=== PATIENT | female | born 2000 | race Caucasian/White ===

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

== ENCOUNTER 2022-01-23 22:47 | Emergency (ER) | payer MEDICAID, SELFPAY ==
[2022-01-23 22:48] VITALS: BP 134/83; PULSE 85; RESP 18; TEMP 36.3; O2SAT 100; BMI 23.6
--- NOTE | 2022-01-23 23:44 | ED.GENADULT ---
HPI - General Adult General Chief complaint: Skin/Abscess/Foreign Body Stated complaint: Bumps on vaginal area Time Seen by Provider: 01/23/22 22:54 Source: patient Mode of arrival: ambulatory Limitations: no limitations History of Present Illness HPI narrative: 21-year-old female no significant medical history presenting to the emergency department with a rash in her private area x2 days. Patient tells me that her rash is very painful, worse with walking. She reports she noted small bumps that are red and tender in her private area. Patient reports that this is never happened to her before. She tells me she is sexually active with 1 partner, this is the only sexual partner she has ever had, she tells me she typically wears protection, she tells me she does not think she has an STD or is . Patient denies fevers, chills, back pain, nausea, vomiting, abdominal pain, headache, vision changes, chest pain, shortness of breath, vaginal bleeding, pain with intercourse, vaginal discharge. Patient reports she has not followed by an OBGYN and has never been seen by OBGYN. Related Data Previous Rx's Medication Instructions Recorded doxycycline hyclate 100 mg capsule 100 mg PO BID 14 days #28 caps 01/23/22 metronidazole 500 mg tablet 500 mg PO BID 14 days #28 tabs 01/23/22 nitrofurantoin 100 mg PO Q12H 5 days #10 caps 01/24/22 monohydrate/macrocrystals 100 mg capsule (Macrobid) valacyclovir 1 gram tablet 1,000 mg PO BID 10 days #20 tabs 01/24/22 (Valtrex) Allergies Allergy/AdvReac Type Severity Reaction Status Date / Time No Known Allergies Allergy Verified 08/17/21 20:45 [No Known Allergies*] Review of Systems Review of Systems: Constitutional : No Weight loss, No Fever, No Chills, No Fatigue, No Malaise ENT/Mouth : No sore throat, No Rhinorrhea Eyes: No Eye Pain, No Swelling, No Redness Cardiovascular : No Chest Pain, No SOB, No Dyspnea on Exertion, No Orthopnea, No Edema, No Palpitations Respiratory : No Cough, No Sputum, No Wheezing Gastrointestinal : No Nausea, No Vomiting, No Diarrhea, No Constipation, No abdominal Pain, No Hematochezia, No Melena Genitourinary : No Dysuria, No Urinary Frequency, No Hematuria, + lesion in vaginal area Musculoskeletal : No joint pain, No Myalgias, No Joint Swelling Skin : No Skin Lesions, No rash Neuro : No Weakness, No Numbness, No Dizziness, No Headache All other systems reviewed and are negative Yes all other systems are reviewed and are negative [facility] Past Medical History Attestation statement: The following information was validated with the patient. Source: old records reviewed and nursing notes reviewed Medical History Breast mass, right Surgical History No pertinent past surgical history Social History Social History Alcohol intake: never Patient Tobacco Use Status: Never used Tobacco Advance Directives: No Physical Exam ED Vital Signs: Vital Signs - 24 hr 01/23/22 22:48 Temperature 97.4 F Pulse Rate 85 Respiratory Rate 18 Blood Pressure 134/83 Pulse Oximetry 100 Oxygen Delivery Method Room Air BMI result Body Mass Index 23.6 vss Appearance: Alert.? Oriented X3.? No acute distress.? Head: Normocephalic, atraumatic, no step-offs or deformities Eyes: Pupils equal, round and reactive to light.?? Neck: Normal inspection.? Neck supple.? CVS: Normal heart rate and rhythm.? Pulses normal.? Respiratory: No respiratory distress.? Breath sounds normal.? Abdomen: Soft and nontender.? Skin: Skin warm and dry.? Normal skin color.? Normal skin turgor.? Extremities: No lower extremity edema.? No calf ttp. 5/5 strength to bilateral upper and lower extremities Pelvic: Patient did not tolerate a bimanual exam well reports significant pain, refusing pelvic. Obtained swabs however (ALETHEA Mcdaniel at bedside bar attendant) + small erythematous crusted lesions in clusters to labia minora and majora painful to the touch. Back: No midline tenderness, no C-spine tenderness, full range of motion, no CVA tenderness bilaterally Neuro: Oriented X 3.? No motor deficit.? No sensory deficit. CN 2-12 intact Course Reevaluation(s) Reevaluation #1: Patient's urine with infection. Discussed this with my attending who recommends adding Macrobid for 5 days for additional coverage. At this time patient will be discharged home advised return with new or worsening symptoms educated on worrisome signs and symptoms and when to return. I did give her follow-up with Dr. Mauro Day for OBGYN as patient is not followed by OBGYN. Provided her with resources of outpatient follow-up and local clinics. Gave her strict return precautions, outlined on discharge. Comfortable discharge home Time: 00:25 Medications Administered Discontinued Medications Generic Name Dose Route Start Last Admin Trade Name Hussain PRN Reason Stop Dose Admin Ceftriaxone Sodium 500 mg 01/23/22 23:39 01/24/22 00:11 Ceftriaxone Sodium 500 Mg Vial IM 01/23/22 23:40 500 mg ONCE ONE Administration Doxycycline Monohydrate 100 mg 01/23/22 23:39 01/24/22 00:11 Doxycycline Monohydrate 100 Mg Capsule PO 01/23/22 23:40 100 mg ONCE ONE Administration Metronidazole 500 mg 01/23/22 23:40 01/24/22 00:11 Metronidazole 500 Mg Tablet PO 01/23/22 23:41 500 mg ONCE ONE Administration Medical Decision Making [facility] Narrative Medical decision making narrative: [id number] 21-year-old female presents with rash in genital area x2 days. Reports it is painful. Currently sexually active with 1 partner. Reports that she does not think she has any STDs. Upon physical examination small erythematous crusted lesions in clusters to labia minora and majora painful to the touch. Patient unable to tolerate bimanual exam, refusing pelvic exam. Patient reports significant pain with bimanual exam and when obtaining swabs. Concerns for genital herpes. And other sexually transmitted infections. Discussed this with patient. Verbalizes understanding, will treat for herpes, gonorrhea, chlamydia, Trichomonas. Patient would like prophylactic treatment. Swabs obtained and sent to the lab. I did educate her on safe sexual practices in getting full panel STD testing, everything I discussed with patient will be outlined on her discharge. Patient not followed by OBGYN will give her follow-up. Plan at this time is basic labs, urine, Trichomonas, BV, gonorrhea, chlamydia swabs. Concerns for possible sexually transmitted infections and or pelvic inflammatory disease. Unlikely ectopic or ovarian torsion patient does not report any associated abdominal pain. Patient agrees to prophylactic treatment for gonorrhea, chlamydia and trichomonas. 500mg IM ceftriaxone has been given here and scripts for doxycycline 100 mg po BID X 14 days and metronidazole 500 mg po BID X 14 days have been given to the patient. Educated on safe sex practices, full pannel STD testing and speaking to? partners on possible STD. Medical Records Medical records reviewed: Yes I reviewed the patient's medical records. Lab Data Lab results reviewed: Yes I reviewed the patient's lab results. Labs: Lab Results 01/23/22 01/23/22 Range/Units 23:52 23:52 Urine Color Yellow Urine Appearance Cloudy Urine pH 6.5 (5.0-9.0) Ur Specific [place] >= 1.030 H (1.005-1.025) Urine Protein Trace (Neg-Trace) mg/dL Urine Glucose (UA) Negative (Negative) mg/dL Urine Ketones 15 (Negative) mg/dL Urine Blood Large (3+) H (Negative) Urine Nitrite Negative (Negative) Ur Leukocyte Esterase Small (1+) H (Negative) Urine RBC 11-20 H (0-2) /HPF Urine WBC 6-10 H (0-5) /HPF Ur Squamous Epith Cells 6-10 (0-2) /HPF Urine Bacteria 4+ (None Seen) Hyaline Casts 0-2 (0-2) /LPF Urine Test NEGATIVE (NEGATIVE) Critical Care Time Critical Care Time Critical Care Time: No Discharge Plan Discharge Clinical Impression: Herpes genitalia, Vaginal lesion, UTI (urinary tract infection) Patient Disposition: Home, Self-Care Instructions: Pelvic Inflammatory Disease (ED), Genital Herpes Simplex (ED), Sexually Transmitted Diseases (ED) Additional Instructions: Take your medications as prescribed. If you were prescribed antibiotics today, it is important that you take your medication to their entirety, do not skip any doses, do not finish them early. Follow-up with your primary care provider this week. Follow-up with OBGYN. Your exam today is concerning for possible sexually transmitted infection and or herpes genitalia as we discussed. Since you did not tolerate the pelvic exam well there is concern for pelvic inflammatory disease. Return to the emergency department with new or worsening symptoms. Such as fevers, chills, chest pain, shortness of breath, nausea, vomiting, dizziness, headache, vision changes, lethargy In case of emergency call 911 You were treated here today with ceftriaxone, a medication that treats gonorrhea. I have sent to your pharmacy Metronidazole that covers trichomonas, and Doxycycline which covers for chlamydia. Please be reevaluated by a healthcare provider after completing your antibiotics. Do not stop them early, do not skip any doses. Until you are reevaluated by a health care provider please practice safe sex as disucussed. Please also have a conversation with your sexual partners.? I also advise you to obtain full panel STD testing to test for other STDs including HIV, Hepatitis B & C and syphilis with your PCP or a local clinic. Prescriptions: New doxycycline hyclate 100 mg capsule 100 mg PO BID 14 Days Qty: 28 0RF metronidazole 500 mg tablet 500 mg PO BID 14 Days Qty: 28 0RF valacyclovir [Valtrex] 1 gram tablet 1,000 mg PO BID 10 Days Qty: 20 0RF nitrofurantoin monohyd/m-cryst [Macrobid] 100 mg capsule 100 mg PO Q12H 5 Days Qty: 10 0RF Rx Instructions: must administer with a meal/food Referrals: Physician,Natalee Ron [Primary Care Provider] - 2 days Yfn Wade MD [Physician] - 1 week Stand Alone Forms: Work/School Release Interventions: ED Discharge Assessment Last Done: 01/24/22 00:17 Discharge Date/Time: 01/24/22 00:18
[2022-01-24] MEDS: cefTRIAXone sodium 500 MG VIAL IM (00:11)
[2022-01-24] MEDS: Doxycycline Monohydrate 100 MG CAPSULE PO (00:11)
[2022-01-24] MEDS: metroNIDAZOLE 500 MG TABLET PO (00:11)
[2022-01-24 00:17] LABS: UPreg QC Valid YES; Urine Pregnancy NEGATIVE (NEGATIVE)
[2022-01-24 00:19] LABS: Color Urine Yellow; Glucose Urine UA Negative (Negative); Leukocyte Esterase Urine Small (1+) (Negative); Nitrite Urine Negative (Negative); PH 6.5 (5.0-9.0); Specific Gravity - Urine >= 1.030 (1.005-1.025); UMIC TRIGGER UACC YES; Urine Blood Large (3+) (Negative); Urine Ketones 15 mg/dL (Negative); Urine Protein Trace mg/dL (Neg-Trace)
[2022-01-24 00:20] LABS: Appearance Urine Cloudy
[2022-01-24 00:21] LABS: Bacteria Urine 4+ (None Seen); Hyaline Casts Urine 0-2 /LPF (0-2); UACC Culture Trigger YES
[2022-01-24 07:22] LABS: CT PCR NOT DETECTED (Not Detect.); NG PCR NOT DETECTED (Not Detect.)
[2022-01-24 12:17] LABS: BV Int Neg Control Negative (Negative); BV Int Pos Control Positive (Positive)
== END 2022-01-24 00:18 | disposition home or self-care (01) ==
PROVIDERS: Physician Assistant; Emergency Provider Emergency Medicine
DX: A60.04 Herpesviral vulvovaginitis (principal); N89.8 Other specified noninflammatory disorders of vagina; N39.0 Urinary tract infection, site not specified
CPT/HCPCS: 36415; 81001; 81003; 81025; 87086; 87255; 87480; 87491; 87510; 87591; 87660; 96372; 99282; 99284; J0696